=== PATIENT | male | born 1985 | race Caucasian/White ===

== ENCOUNTER 2022-10-19 20:58 | Emergency (ER) | payer SELFPAY ==
[~2022-10-19] VITALS: Ht 180.3 cm; Wt 65.8 kg
[2022-10-19 21:11] VITALS: BP 127/70
== END 2022-10-19 23:00 | disposition home or self-care (01) ==
LOC: ER 20:58 → EDBD 20:58 → ER 23:00
DX: S63.064A Dislocation of metacarpal (bone), proximal end of right hand, initial encounter (principal); W22.8XXA Striking against or struck by other objects, initial encounter; F17.210 Nicotine dependence, cigarettes, uncomplicated
CPT/HCPCS: 26700; 73120; 99283-25; A9270

== ENCOUNTER 2024-11-15 13:24 | Emergency (ER) | payer BC, OTHER ==
[~2024-11-15] VITALS: Ht 180.3 cm; Wt 57.0 kg
[2024-11-15 13:35] VITALS: BP 133/83
[2024-11-15] MEDS ORDERED: OXAYDO5 M1 PO (15:10)
[2024-11-19] MEDS ORDERED: AMOX250 PO (10:26)
[2024-11-19] MEDS ORDERED: OXYC5 PO (10:27)
== END 2024-11-15 15:43 | disposition home or self-care (01) ==
LOC: ER 13:24
DX: S89.191A Other physeal fracture of lower end of right tibia, initial encounter for closed fracture (principal); F17.210 Nicotine dependence, cigarettes, uncomplicated; X50.1XXA Overexertion from prolonged static or awkward postures, initial encounter
CPT/HCPCS: 27825; 73610; 99283-25; A9270

== ENCOUNTER 2024-11-23 10:06 | Day surgery (SDC) | payer BC, OTHER ==
[2024-11-23] VITALS (10 sets, daily range): BP systolic 98–113; BP diastolic 63–86
[~2024-11-23] VITALS: Ht 180.3 cm; Wt 59.0 kg
[~2024-11-23 10:06] MED LIST: AMOX250 PO; CeFAZolin Sodium 2,000 MG in NS 100 ML IV SCH; OXAYDO5 M1 PO; OXYC5 PO
[2024-11-23] MEDS ORDERED: CeFAZolin Sodium 2,000 MG VIAL ONE (10:46)
--- NOTE | 2024-11-23 11:16 | NUR ---
TO SDS VIA CRUTCHES, STEADY ONFEET. History, Chart, Medications and Allergies reviewed before start of procedure.Patient confirms NPO status and agrees with scheduled surgery. Pre-Op teaching done. Pt verbalizes understanding.
[2024-11-23] MEDS ORDERED: Bupivacaine 0.25% Epi 1:200000 30 ML Vial ONE (11:58)
[2024-11-23] MEDS ORDERED: Bupivacaine 0.5% W/EPI 1:200000 SDV 30 ML Vial ONE (11:58)
[2024-11-23] MEDS ORDERED: FentaNYL Citrate 50 MCG/ML 2 ML Injection ONE (11:59)
[2024-11-23] MEDS ORDERED: Ondansetron HCl 2 MG / ML 2ML Vial ONE (12:37)
[2024-11-23] MEDS ORDERED: Dexamethasone Sod Phos 10 MG/ML 1ML VIAL ONE (12:37)
[2024-11-23] MEDS ORDERED: Sugammadex Sodium 200 MG/2ML SDV (100 MG/ML) ONE (12:44)
[2024-11-23] MEDS ORDERED: Prochlorperazine Edisylate 10 mg Vial IV PRN (12:45)
[2024-11-23] MEDS ORDERED: HYDROmorphone HCl/Pf 1MG SYR ONE (12:48)
[2024-11-23] MEDS ORDERED: Labetalol HCL 5 MG/ML 4ML Injection (Single Dose) IV PRN (12:50)
[2024-11-23] MEDS ORDERED: Ondansetron HCl 2 MG / ML 2ML Vial IV PRN (12:50)
[2024-11-23] MEDS ORDERED: HYDROmorphone HCl/Pf 1MG SYR IV PRN ×2 (12:50)
[2024-11-23] MEDS ORDERED: FentaNYL Citrate 50 MCG/ML 2 ML Injection IV PRN ×2 (12:50)
--- NOTE | 2024-11-23 13:57 | NUR ---
REPORT FROM ALVIN TEE RN. PT TOLERATING PO FLUIDS, HAS MISHEL BANDAGE WRAP IN PLACE THAT IS CDI, PT ABLE TO FLEX AND MOVE TOES ON OPERATIVE EXTREMITY.
--- NOTE | 2024-11-23 14:35 | NUR ---
DISCHARGE: Patient up to Ambulate independently WITH CRUTCHES. Gait steady. Discharge instructions reviewed with patient. Patient verbalizes understanding. Copy given to patient to take home. Patient States Post-Procedure ride home has been arranged. Discharged via wheelchair to private car for ride home. PT TOLERATING PO, REPORTS READY TO GO HOME. DRESSING/SPLINT C/D/I. CIRC CHECK WNL. PT HAS OWN CRUTCHES THAT HE IS USING. DENIES PAIN,N/V.
== END 2024-11-23 14:35 | disposition home or self-care (01) ==
LOC: ORSCMMR 10:06 → ORD 10:30 → ORSCMMR 11:30 → ORD 11:45 → ORSCMMR 14:35
PROVIDERS: Orthopaedic Surgery
PROC: 0QSG04Z Reposition Right Tibia with Internal Fixation Device, Open Approach (ICD-10-PCS; principal; 2024-11-23 11:00)
DX: S82.51XA Displaced fracture of medial malleolus of right tibia, initial encounter for closed fracture (principal); W22.8XXA Striking against or struck by other objects, initial encounter; F17.220 Nicotine dependence, chewing tobacco, uncomplicated
CPT/HCPCS: C1713; C1769; J0690; J1100; J1171; J2405; J2704; J3010; J7120